=== PATIENT | male | born 1970 | race Caucasian/White ===

== ENCOUNTER → 2017-02-23 | Outpatient (CLI) | payer OTHER ==
[~2017-02-23] MED LIST: 00186-0372-20 IH; AMBIEN 5MG TABLE5 MG PO; LAMICTAL200 MG PO; MOBIC15 MG PO; ZANAFLEX 4MG TAB4 MG PO
== END ==
LOC: MHCPAIN 08:56
DX: G89.29 Other chronic pain (principal); M47.27 Other spondylosis with radiculopathy, lumbosacral region; M53.3 Sacrococcygeal disorders, not elsewhere classified; M96.1 Postlaminectomy syndrome, not elsewhere classified
CPT/HCPCS: G0463

== ENCOUNTER → 2017-03-04 | Outpatient (CLI) | payer OTHER | LOC: MHCPAIN 10:27 | DX: M53.3 Sacrococcygeal disorders, not elsewhere classified (principal) | CPT/HCPCS: G0260; J1040; Q9967 ==

== ENCOUNTER 2017-04-07 08:49 | Outpatient (CLI) | payer OTHER ==
[~2017-04-07] VITALS: Ht 177.8 cm; Wt 112.8 kg
[2017-04-07] MEDS ORDERED: AMBIEN 5MG TABLE5 MG PO (09:13)
[2017-04-07] MEDS ORDERED: LAMICTAL200 MG PO (09:14)
[2017-04-07] MEDS ORDERED: ZANAFLEX 4MG TAB4 MG PO (09:14)
[2017-04-07] MEDS ORDERED: MOBIC15 MG PO (09:15)
[2017-04-07] MEDS ORDERED: 00186-0372-20 IH (09:16)
[2017-04-07 09:24] VITALS: BP 149/88; PULSE 69
[2017-04-07 10:45] VITALS: BP 130/86; PULSE 57
[2017-04-07 10:47] VITALS: BP 121/86; PULSE 69
[2017-04-07 11:00] VITALS: BP 138/88; PULSE 61
[2017-04-07 11:30] VITALS: BP 131/84; PULSE 62
[2017-04-07 12:00] VITALS: BP 131/84; PULSE 63
== END 2017-04-07 12:17 | disposition home or self-care (01) ==
LOC: COL.RAD 08:49
DX: M96.1 Postlaminectomy syndrome, not elsewhere classified (principal)
CPT/HCPCS: Q9965

== ENCOUNTER → 2017-05-07 | Outpatient (CLI) | payer OTHER | LOC: MHCPAIN 08:24 | DX: G89.29 Other chronic pain (principal); M47.817 Spondylosis without myelopathy or radiculopathy, lumbosacral region; M54.16 Radiculopathy, lumbar region; M53.3 Sacrococcygeal disorders, not elsewhere classified; M96.1 Postlaminectomy syndrome, not elsewhere classified | CPT/HCPCS: G0463 ==

== ENCOUNTER → 2017-05-13 | Outpatient (CLI) | payer OTHER | LOC: MHCPAIN 10:31 | DX: M51.36 Other intervertebral disc degeneration, lumbar region (principal); M96.1 Postlaminectomy syndrome, not elsewhere classified | CPT/HCPCS: J1040; Q9967 ==

== ENCOUNTER → 2017-06-15 | Outpatient (CLI) | payer OTHER | LOC: MHCPAIN 10:59 | DX: G89.29 Other chronic pain (principal); M47.27 Other spondylosis with radiculopathy, lumbosacral region; M53.3 Sacrococcygeal disorders, not elsewhere classified; M96.1 Postlaminectomy syndrome, not elsewhere classified | CPT/HCPCS: G0463 ==

== ENCOUNTER → 2022-04-29 | Outpatient (CLI) | payer OTHER ==
[~2022-04-29] VITALS: Ht 177.8 cm; Wt 113.1 kg
[~2022-04-29] MED LIST changes: +DEPAKOTE500 MG PO; +LOPID 600M600 MG/TAB PO; +NORCO 325 MG-51 TAB PO; +PRIL40 PO; +TOPAMAX 100MG100 M1 PO; +TOPAMAX50 MG PO
[2022-04-29 09:16] VITALS: BP 119/75; PULSE 65; TEMP 97.6
--- NOTE | 2022-04-29 11:00 | NUR ---
Dr Childs talks with pt and then attempts to talk to [facility]. Pt biopsy canceled.
== END ==
LOC: COL.RAD 08:56
DX: Z01.89 Encounter for other specified special examinations (principal); R91.8 Other nonspecific abnormal finding of lung field